=== PATIENT | female | born 1990 | race Caucasian/White ===

== ENCOUNTER 2017-10-02 17:58 | Emergency (ER) | payer OTHER ==
[~2017-10-02] VITALS: Ht 172.7 cm; Wt 101.1 kg
[~2017-10-02 17:58] MED LIST: ADDERALL XR 2020 MG PO; BELVIQ10 MG PO; BENTYL20 MG PO; CEFUROXIME250 MG PO; CEFUROXIME500 MG PO; COLACE50 MG PO; CYANOCOBALAM1000 MCG PO; CYCLOBENZAPRINE5 MG PO; Colace PO; DIAZEPAM5 MG PO; DILAUDID2 MG PO; DOCUSATE SODIU100 MG PO; DULOXETINE HCL60 MG PO; FAMOTIDINE20 MG PO; FIORICET,ESG1 TABLET PO; FLEXERIL10 MG PO; Feosol PO; KLONOPIN0.5 M1 PO; LAMICTAL25 MG PO; LOESTRIN1 EACH PO; MACROBID100 MG PO; MIRALAX17 GM PO; MOBIC7.5 MG PO; MOTRIN800 MG PO; Motrin PO; OXYCODONE HCL5 MG PO; PREDNISONE20 MG PO; PROAIR HFA8.5 GM IH; PROZAC10 MG PO; Percocet 5/325,Endoc PO; SPRINTEC1 EACH PO; TESSALON PERLE100 MG PO; VALIUM5 MG PO; WELLBUTRIN XL150 MG PO
[2017-10-02 20:45] VITALS: BP 112/60
== END 2017-10-02 20:45 | disposition left against medical advice (07) ==
LOC: EME 17:58
DX: M54.9 Dorsalgia, unspecified (principal); M25.552 Pain in left hip; M25.551 Pain in right hip; Z53.21 Procedure and treatment not carried out due to patient leaving prior to being seen by health care provider

== ENCOUNTER 2018-01-25 19:41 | Emergency (ER) | payer OTHER ==
[~2018-01-25] VITALS: Ht 172.7 cm; Wt 104.9 kg
[2018-01-25 20:09] LABS: HEMATOCRIT 39.6 % (36.0-46.0); HEMOGLOBIN 13.5 G/DL (11.9-15.5); MCH 31.2 PG (29.0-34.0); MCHC 34.1 G/DL (30.0-36.0); MCV 91.5 FL (83-99); PLATELET COUNT 281 K/uL (156-360); RBC DIS.WIDTH-CV 12.4 % (11.8-14.6); RBC DIS.WIDTH-SD 41.3 % (39-53); RED BLOOD COUNT 4.33 M/uL (3.80-5.20); WHITE BLOOD COUNT 9.2 K/uL (4.1-10.2)
[2018-01-25 20:23] LABS: ALBUMIN 3.8 g/dL (3.2-4.8)
[2018-01-25 20:24] LABS: CHLORIDE 108 mEq/L (99-109); POTASSIUM 4.2 mEq/L (3.7-5.4); SODIUM 140 mEq/L (136-147)
[2018-01-25 20:26] LABS: GLUCOSE 124 mg/dL (70-99); TOTAL PROTEIN 7.5 g/dL (6.4-8.3)
[2018-01-25 20:28] LABS: TOTAL BILIRUBIN 0.3 mg/dL (0.0-1.0)
[2018-01-25 20:29] LABS: ALKALINE PHOSPHATASE 104 IU/L (3-129)
[2018-01-25 20:30] LABS: CREATININE 0.8 mg/dL (0.6-1.3); GFR ESTIMATE (CALCULATED) > 59 mL/min/
[2018-01-25 20:31] LABS: AST (GOT) 38 IU/L (2-34); UREA NITROGEN (BUN) 11 mg/dL (9-23)
[2018-01-25 20:33] LABS: ALT (GPT) 36 IU/L (3-49)
[2018-01-25 20:40] LABS: QUANTITATIVE HCG < 4.0 MIU/ML
[2018-01-25 20:53] LABS: APPEARANCE SL.HAZY ((CLEAR)); BILIRUBIN NEGATIVE; BLOOD NEGATIVE; COLOR YELLOW ((YELLOW)); GLUCOSE (STRIP) NEGATIVE; KETONES NEGATIVE; LEUKOCYTES NEGATIVE; NITRITE NEGATIVE; PROTEIN (STRIP) NEGATIVE; SPECIFIC GRAVITY 1.026 (1.000-1.030); UROBILINOGEN 0.2 MG/DL (0.2-1.0)
[2018-01-25 21:32] LABS: BACTERIA 1+ /HPF; EPITHELIAL CELLS 1+ /HPF; MUCUS 1+ /LPF; RED BLOOD CELLS NONE SEEN /HPF (0-5); UCUL ADDED? NO; WHITE BLOOD CELLS RARE /HPF (0-5)
[2018-01-25] MEDS ORDERED: FIORICET 50-301 EAC1 PO (21:44)
[2018-01-25 21:56] VITALS: BP 118/93
== END 2018-01-25 22:10 | disposition home or self-care (01) ==
LOC: EME 19:41
DX: R51 Headache (principal); R10.9 Unspecified abdominal pain; R11.2 Nausea with vomiting, unspecified; F41.9 Anxiety disorder, unspecified; J45.909 Unspecified asthma, uncomplicated; K21.9 Gastro-esophageal reflux disease without esophagitis; Z88.0 Allergy status to penicillin
CPT/HCPCS: 80053; 81003; 84702; 85027; 99281; 99284; J0780; J1200; J7030